=== PATIENT | male | born 1960 | race Caucasian/White ===

== ENCOUNTER 2017-05-22 05:41 | Outpatient (CLI) | payer OTHER ==
[~2017-05-22] VITALS: Ht 172.7 cm; Wt 65.3 kg
[~2017-05-22 05:41] MED LIST: HYDR-3812 PO; NAPR-243 PO; TRAM50TA2 PO
== END 2017-05-22 09:59 ==
LOC: PREOP 05:41
PROVIDERS: ATTEND Surgery
DX: Z01.818 Encounter for other preprocedural examination (principal); Z86.010 Personal history of colon polyps

== ENCOUNTER 2017-05-23 06:54 | Day surgery (SDC) | payer OTHER ==
[~2017-05-23] VITALS: Ht 172.7 cm; Wt 65.3 kg
[2017-05-23] MEDS ORDERED: LACTATED RINGERS 1,000 ML IV STA (07:09)
[2017-05-23] MEDS ORDERED: PROPOFOL INJECTION 50 ML IV ONE (07:22)
[2017-05-23] MEDS ORDERED: LIDOCAINE PF 2% 5 ML (XYLOCAINE) VIAL ONE (07:22)
[2017-05-23 07:27] VITALS: BP 136/82
--- NOTE | 2017-05-23 09:18 | Discharge Inst-Simple/Standard ---
Discharge Inst-Standard Patient Instructions/Follow Up Plan of Care/Instructions/FU: Follow up with Dr. Fu in 2 weeks Follow up colonoscopy in 3 years Activity as Tolerated: Yes Discharge Diet: No Restrictions ANDRZEJ SANTOS APRN May 23, 2017 09:18
--- NOTE | 2017-05-23 09:19 | Progress Note-Post Operative ---
Post-Operative Progess Note Surgeon (s)/Pilot Teacher (s) Surgeon INDIO CARDOZA DO Pilot Teacher: na Pre-Operative Diagnosis history polyps Post-Operative Diagnosis sigmoid and rectal polyp Procedure & Operative Findings Date of Procedure 05/23/17 Procedure Performed/Findings colonoscopy with hot bx polypectomy snare polypectomy. Anesthesia Type per polishing machine tender Estimated Blood Loss Estimated blood loss (mL): none Specimens/Packing Specimens Removed sigmoid and rectal polyp INDIO CARDOZA DO May 23, 2017 9:19 am
[2017-05-23 09:30] VITALS: BP 133/79
[2017-05-23 09:50] VITALS: BP 141/95
[2017-05-23 10:00] VITALS: BP 141/95
--- NOTE | 2017-05-23 15:33 | OPERATIVE REPORT ---
DATE OF SERVICE: 05/23/2017 PREOPERATIVE DIAGNOSIS: History of polyps. POSTOPERATIVE DIAGNOSIS: Sigmoid and rectal polyp and hemorrhoids. PROCEDURE: Colonoscopy with hot biopsy polypectomy and snare polypectomy. SURGEON: Indio Fu DO ANESTHESIA: Per EXERCISE SPECIALIST. ESTIMATED BLOOD LOSS: None. COMPLICATIONS: None. INDICATIONS: The patient is a 57-year-old male with a history of colon polyps. He was explained the risks and benefits of repeating colonoscopy for reevaluation. He understands the risks and benefits and wishes to proceed. Consent was signed and on the chart. DESCRIPTION OF PROCEDURE: The patient was taken to the endoscopy suite, placed in left lateral recumbent position. Timeout was performed. Digital rectal exam was performed. There is some moderate hemorrhoid disease. There was no other palpable polyps, masses or ulcerations. Scope was inserted in the rectum and advanced all the way to the cecum with minimal difficulty. Prep was adequate with irrigation and suction. The scope was then slowly retracted back. There were no polyps, masses or ulcerations in the cecum, ascending, transverse and descending colon. Within the sigmoid colon was a small polyp for which hot biopsy polypectomy was performed. Scope was continuously retracted back into the rectum, where there was also a small polyp for which snare polypectomy was performed. Scope was inserted and retracted multiple times, noting no other pathology except for the hemorrhoidal disease. The scope was then slowly retracted until completely removed. RECOMMENDATIONS: The patient will need repeat colonoscopy in three years. If he has any problems prior to that, he should be reevaluated at that time. The patient will follow up in two weeks to discuss pathology. Job ID: [id number] DocumentID: [id number] Dictated Date: 05/23/2017 09:22:30 Slot Machine Key Person Date: 05/23/2017 09:32:00 Dictated By: INDIO FU DO
== END 2017-05-23 10:00 | disposition home or self-care (01) ==
LOC: ENDO 06:54
PROVIDERS: ATTEND Surgery
DX: Z12.11 Encounter for screening for malignant neoplasm of colon (principal); D12.5 Benign neoplasm of sigmoid colon; D12.8 Benign neoplasm of rectum; K64.9 Unspecified hemorrhoids; Z86.010 Personal history of colon polyps; F17.210 Nicotine dependence, cigarettes, uncomplicated